=== PATIENT | male | born 1975 | race American Indian/Alaskan Native ===

== ENCOUNTER 2017-06-29 13:17 | Emergency (ER) | payer BC ==
[2017-06-29 13:39] VITALS: BP 127/88
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
[2017-06-29] MEDS: MOTRIN PO ONE (14:51)
== END 2017-06-29 15:30 | disposition home or self-care (01) ==
LOC: ED 13:17
DX: S00.03XA Contusion of scalp, initial encounter (principal); S09.90XA Unspecified injury of head, initial encounter; M10.9 Gout, unspecified; Y09 Assault by unspecified means; Y93.9 Activity, unspecified; Y99.9 Unspecified external cause status; Y92.89 Other specified places as the place of occurrence of the external cause
CPT/HCPCS: 70450